=== PATIENT | female | born 1975 | race African-American/Black ===

== ENCOUNTER 2020-09-14 11:46 | Emergency (ER) | payer MEDICAID ==
[~2020-09-14] VITALS: Ht 160 cm; Wt 52.2 kg
[2020-09-14 11:48] VITALS: BP 110/74
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
--- NOTE | 2020-09-14 12:02 | NUR ---
water technician at pt bedside.
--- NOTE | 2020-09-14 12:22 | NUR ---
Pt refused straight catherization, Dr. Lopez made aware.
[2020-09-14 12:23] LABS: BASOPHILS % (AUTO) 0.4 % (0.0-2.0); EOSINOPHILS % (AUTO) 0.5 % (0.0-4.0); HEMATOCRIT 29.9 % (36-48); HEMOGLOBIN 9.6 g/dL (12.0-16.0); LYMPHOCYTES # (AUTO) 1.9 K/uL (2.5-16.5); MEAN CORPUSCULAR HEMOGLOBIN 27 pg (27-31); MEAN CORPUSCULAR HGB CONC 32 g/dL (33-37); MEAN CORPUSCULAR VOLUME 85.4 fL (80-94); MONOCYTES # (AUTO) 0.5 K/uL (0.8-1.0); MONOCYTES % (AUTO) 8.4 % (1.7-9.3); NEUTROPHILS % (AUTO) 55.7 % (42.2-75.2); PLATELET COUNT (AUTO) 450 K/uL (140-450); RED CELL DISTRIBUTION WIDTH 14.6 % (11.6-13.7); WHITE BLOOD COUNT (AUTO) 5.4 K/uL (4.8-10.8)
[2020-09-14] MEDS ORDERED: HALOPERIDOL IM 5 MG/ML VIAL IM ONE (12:40)
[2020-09-14 12:52] LABS: ALBUMIN 3.1 g/dL (3.4-5.0); ANION GAP 14.5 (8-16); ASPARTATE AMINOTRANSFERASE 53 U/L (15-37); CARBON DIOXIDE 25.8 mmol/L (21-32); CHLORIDE 105 mmol/L (98-107); CREATININE 1.1 mg/dL (0.6-1.3); GFR ARICAN-AMERICAN 70 mL/min (>90); GLUCOSE 75 mg/dL (74-106); POTASSIUM 3.3 mmol/L (3.5-5.1); SALICYLATE 2.8 mg/dL (2.8-20.0); SODIUM SERUM 142 mmol/L (136-145); TOTAL BILIRUBIN 0.4 mg/dL (0.0-1.0); UREA NITROGEN, BLOOD 14 mg/dL (7-18)
--- NOTE | 2020-09-14 13:07 | NUR ---
Pt sleeping, visible rise and fall of chest, VSS will continue to monitor.
[2020-09-14 13:14] LABS: ACETAMINOPHEN < 0.5 ug/ml (10-30)
--- NOTE | 2020-09-14 15:49 | NUR ---
Pt awake, alert, verbal, Dr. Bonilla and security at bedside for evaluation.
--- NOTE | 2020-09-14 16:43 | NUR ---
Pt HOB elevated, blanket provided, eating, calm and cooperative.
--- NOTE | 2020-09-14 17:33 | NUR ---
Pt sleeping, head covered with blanket.
--- NOTE | 2020-09-14 19:18 | NUR ---
Gave report to BLAKE Stout, transfered care at this time.
--- NOTE | 2020-09-14 19:26 | NUR ---
Performed Niko cavazos, walked to lab.
--- NOTE | 2020-09-14 19:54 | NUR ---
TELEPSYCH DOCTOR SPEAKING WITH PATIENT.
--- NOTE | 2020-09-14 20:45 | NUR ---
Alli malik in ED - 09/14/[address] [facility] PT PLACED ON 2L NC. SPO2 99%.
--- NOTE | 2020-09-15 00:24 | NUR ---
PT AMBULATED TO THE BATHROOM.
--- NOTE | 2020-09-15 00:30 | NUR ---
PT EATING DINNER AT THIS TIME.
--- NOTE | 2020-09-15 00:45 | NUR ---
COVID SWAB COLLECTED AND SENT TO LAB.
--- NOTE | 2020-09-15 04:00 | NUR ---
PT SLEEPING COMFORTABLY AT THIS TIME. EQUAL CHEST RISE AND FALL.
--- NOTE | 2020-09-15 07:29 | NUR ---
Pt report given to BLAKE KRAUS. Transfer of care at this time.
--- NOTE | 2020-09-15 07:41 | NUR ---
PT ALERT AND AWAKE, BREATHING EVEN AND UNLABORED. NO DISTRESS NOTED. SITTER REMAINS AT BEDSIDE, WILL CONTINUE TO MONITOR.
--- NOTE | 2020-09-15 08:00 | NUR ---
BREAKFAST PLATE AT BED SIDE, PT EATING
--- NOTE | 2020-09-15 08:20 | NUR ---
[facility] to continue monitoring notes/working on placement. Pt pending covid swab prior to being accepted at [facility].
[2020-09-15] MEDS ORDERED: levETIRAcetam 500 MG TAB PO ONE (08:40)
[2020-09-15] MEDS ORDERED: ALPRAZolam 0.5 MG TAB PO SCH (08:40)
[2020-09-15] MEDS ORDERED: GABAPENTIN 300 MG CAP PO ONE (08:40)
[2020-09-15] MEDS ORDERED: OXcarbazepine 150 MG TAB PO SCH (09:00)
[2020-09-15] MEDS ORDERED: IBUPROFEN 400 MG TAB PO ONE (09:20)
--- NOTE | 2020-09-15 10:00 | NUR ---
PT ALERT AND AWAKE, BREATHING EVEN AND UNLABORED. NO DISTRESS NOTED. SITTER REMAINS AT BEDSIDE, WILL CONTINUE TO MONITOR.
--- NOTE | 2020-09-15 11:44 | NUR ---
PT SLEEPING AT THIS TIME LEFT LATERAL, V/S STABLE, RAILS UP X2 WILL CONTINUE TO MONITOR.
--- NOTE | 2020-09-15 12:33 | NUR ---
PT ALERT AND AWAKE, BREATHING EVEN AND UNLABORED. NO DISTRESS NOTED. SITTER REMAINS AT BEDSIDE, WILL CONTINUE TO MONITOR.
--- NOTE | 2020-09-15 12:35 | NUR ---
DR. CAMPOS AT BEDSIDE EVALUATING PATIENT.
--- NOTE | 2020-09-15 12:36 | NUR ---
PT'S LUNCH BY BED SIDE, PT IS CURRENTLY SPEAKING WITH
--- NOTE | 2020-09-15 12:39 | NUR ---
PT IS EATING LUNCH
--- NOTE | 2020-09-15 13:17 | NUR ---
PT RESTING WITH EYES CLOSED, BREATHING EVEN AND UNLABORED. NO DISTRESS NOTED. SITTER REMAINS AT BEDSIDE, WILL CONTINUE TO MONITOR.
--- NOTE | 2020-09-15 14:33 | NUR ---
PT RESTING WITH EYES CLOSED, BREATHING EVEN AND UNLABORED. NO DISTRESS NOTED. SITTER REMAINS AT BEDSIDE, WILL CONTINUE TO MONITOR.
--- NOTE | 2020-09-15 17:58 | NUR ---
Pt accepted to [facility]. Rm 142-A Accepting physician: Dr. Escalante Number for report [phone] transfer time will be given during nurse to nurse report. s/w Tessie in ER, relayed this info
--- NOTE | 2020-09-15 18:51 | NUR ---
PT ALERT AND AWAKE, BREATHING EVEN AND UNLABORED. NO DISTRESS NOTED. SITTER REMAINS AT BEDSIDE, WILL CONTINUE TO MONITOR. PT EATING DINNER TRAY
--- NOTE | 2020-09-15 19:19 | NUR ---
RECEIVED REPORT FROM BLAKE KWON. TRANSFER OF CARE AT THIS TIME.
--- NOTE | 2020-09-15 19:40 | NUR ---
Patient to be transferred to [facility]. Is being transferred due to higher level of care. Receiving facility has accepting physician and available space. ER physician has signed transfer form. Patient or responsible green party has agreed to transfer and signed form. Patient belongings inventoried and will be sent with patient. Copy of nursing notes, lab reports, EKG, Physicians Orders and X-rays to be sent with patient. Report called to Donald LOZANO at receiving facility. [facility] ambulance service has been called for transfer.
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
[2020-09-15] MEDS ORDERED: QUEtiapine FUMARATE 25 MG TAB PO SCH (21:00)
[2020-09-15] MEDS ORDERED: HYDROcodone/APAP 5/325 MG 1 TAB TAB PO ONE (21:30)
[2020-09-15] MEDS ORDERED: LORazepam 2 MG/ML VIAL IM ONE (22:00)
[2020-09-15 22:49] VITALS: BP 115/80
--- NOTE | 2020-09-15 22:51 | NUR ---
Patient to be transferred to [facility]. Is being transferred due to 5150. Receiving facility has accepting physician and available space. ER physician has signed transfer form. Patient or responsible alliance party has agreed to transfer and signed form. Patient belongings inventoried and will be sent with patient. Copy of nursing notes, lab reports, EKG, Physicians Orders and X-rays to be sent with patient.
== END 2020-09-15 22:51 ==
LOC: MED 11:46
DX: F29 Unspecified psychosis not due to a substance or known physiological condition (principal); R45.851 Suicidal ideations; R45.850 Homicidal ideations
CPT/HCPCS: 36415; 80053; 84703; 85025; 87426; 96372; 99291; G0480; G0482; J1630; U0003; 99285